=== PATIENT | male | born 1950 | race Hispanic/Latino ===

== ENCOUNTER 2017-11-24 08:19 | Day surgery (SDC) | payer MEDICARE ==
[~2017-11-24] VITALS: Ht 165.1 cm; Wt 95.1 kg
[~2017-11-24 08:19] MED LIST: SODIUM CHLORIDE 0.9% 1000ML 1,000 ML IV ONE
[2017-11-24 08:23] VITALS: BP 124/72
[2017-11-24] MEDS ORDERED: POTA-79 PO (08:51)
[2017-11-24] MEDS ORDERED: METO-409 PO (08:51)
[2017-11-24] MEDS ORDERED: HYDR-2534 PO (08:51)
[2017-11-24] MEDS ORDERED: LEVO150T11 PO (08:51)
[2017-11-24] MEDS ORDERED: LISI-617 PO (08:51)
[2017-11-24] MEDS ORDERED: DILT300C23 PO (08:51)
[2017-11-24] MEDS ORDERED: PROPOFOL 10 MG/ML 20ML VIAL IV ONE (09:39)
[2017-11-24 09:51] VITALS: BP 81/53
== END 2017-11-24 10:45 | disposition home or self-care (01) ==
LOC: DAH 08:19 → ENDO 08:19
PROVIDERS: ATTEND Internal Medicine Gastroenterology
DX: K22.2 Esophageal obstruction (principal); K22.70 Barrett's esophagus without dysplasia; K22.8 Other specified diseases of esophagus; K44.9 Diaphragmatic hernia without obstruction or gangrene; K21.0 Gastro-esophageal reflux disease with esophagitis; I10 Essential (primary) hypertension; E03.9 Hypothyroidism, unspecified; B19.20 Unspecified viral hepatitis C without hepatic coma; G47.30 Sleep apnea, unspecified; Z79.899 Other long term (current) drug therapy
CPT/HCPCS: 43239; 88305; 93005; A4606; J2704; J7030

== ENCOUNTER → 2019-03-02 | Outpatient (CLI) | payer OTHER ==
[~2019-03-02] MED LIST changes: +DILT300C23 PO; +HYDR-2534 PO; +LEVO150T11 PO; +LISI-617 PO; +METO-409 PO; +POTA-79 PO; -SODIUM CHLORIDE 0.9% 1000ML 1,000 ML IV ONE
== END | disposition home or self-care (01) ==
LOC: RAH 14:28
PROVIDERS: ATTEND Internal Medicine
DX: Z13.6 Encounter for screening for cardiovascular disorders (principal)
CPT/HCPCS: 75571

== ENCOUNTER → 2021-03-17 | Outpatient (CLI) | payer OTHER ==
[~2021-03-17] MED LIST changes: -HYDR-2534 PO; +HYDR50TA PO; -LISI-617 PO; +LISI-809 PO
== END | disposition home or self-care (01) ==
LOC: OIH 10:21
PROVIDERS: ATTEND Internal Medicine
DX: M50.323 Other cervical disc degeneration at C6-C7 level (principal); M48.02 Spinal stenosis, cervical region; M48.03 Spinal stenosis, cervicothoracic region
CPT/HCPCS: 72050

== ENCOUNTER → 2021-12-01 | Outpatient (CLI) | payer OTHER ==
[~2021-12-01] MED LIST changes: +IOHEXOL-350 50ML VIAL IV ONE; -LISI-809 PO; +LISI5TAB21 PO
== END | disposition home or self-care (01) ==
LOC: RAH 10:00
PROVIDERS: ATTEND Internal Medicine
DX: I71.4 Abdominal aortic aneurysm, without rupture (principal); K57.30 Diverticulosis of large intestine without perforation or abscess without bleeding; I25.10 Atherosclerotic heart disease of native coronary artery without angina pectoris
CPT/HCPCS: 74178; Q9967